=== PATIENT | male | born 1960 | race Caucasian/White ===

== ENCOUNTER 2017-07-25 12:40 | Observation (INO) | payer OTHER ==
[~2017-07-25] VITALS: Ht 167.6 cm; Wt 65.0 kg
[2017-07-25] MEDS ORDERED: GADODIAMIDE PF 287 MG/ML 5 ML VIAL (for RAD MRI) IV PUSH ONE (12:41)
[2017-07-25 12:49] VITALS: BP 167/84; PULSE 74; RESP 17; O2SAT 97
[2017-07-25] MEDS ORDERED: SODIUM CHLOR 0.9% 1000 ML INJ 1,000 ML IV ONE (13:02)
[2017-07-25 13:08] VITALS: O2SAT 96
--- NOTE | 2017-07-25 13:08 | PD ---
HPI Chief Complaint: Syncope/Near-Syncope Time Seen by Provider: 12:55 Travel History International Travel<30 days: No Contact w/Intl Traveler<30days: No Traveled to known affect area: No History of Present Illness HPI The patient is a 57-year-old male who presents to the emergency department via EMS for headache. The patient developed a headache at approximately 10 AM. Gradual onset, right-sided, radiates the right aspect of the neck. The patient then developed photophobia, nausea and, and vomiting. The patient states he fell on a glass table, injuring his left knee, secondary to the headache pain earlier today. He does note a superficial abrasion to the left knee, but states he did not strike his head on the ground at that time and there was no loss of consciousness. The patient denies any history of previous similar headaches or history of migraines. He does have a history of previous cervical fracture, but denies any recent trauma to the head or neck. He denies taking any anticoagulants or blood thinners. He denies any focal deficits of the upper or lower extremities. Symptoms are moderate. There are no current alleviating or exacerbating factors. [facility] Past Medical History Narrative Medical Depression, cervical fracture ?: Not Past Surgical History Surgical History: No Previous Surgery Social History Tobacco Use: Yes Allergies-Medications (Allergen,Severity, Reaction): Coded Allergies: No Known Allergies (Unverified , 07/25/17) Reported Meds & Prescriptions Reported Meds & Active Scripts Active Reported Baclofen 10 Mg Tab 10 Mg PO BID Physical Exam Narrative GENERAL: Awake, alert, nontoxic-appearing 57-year-old male who appears his stated age and is in no acute respiratory distress. SKIN: Focused skin assessment warm/dry. HEAD: Atraumatic. Normocephalic. EYES: Pupils equal and round. 3 mm bilateral and reactive. EOMs are intact. Patient is able to see fingers at a distance of 2 feet without difficulty. ENT: No nasal bleeding or discharge. Mucous membranes pink and moist. NECK: Trachea midline. No JVD. No meningeal signs. CARDIOVASCULAR: Regular rate and rhythm. No murmur appreciated. RESPIRATORY: No accessory muscle use. Clear to auscultation. Breath sounds equal bilaterally. GASTROINTESTINAL: Abdomen soft, non-tender, nondistended. No rebound tenderness. MUSCULOSKELETAL: No obvious deformities. No clubbing. No cyanosis. No edema. NEUROLOGICAL: Awake and alert. Slightly asymmetric smile on the left with mild droop. Patient is able to wrinkle the forehead symmetrically. No drift of the upper or lower extremities. Sensation is intact in the face, arms, and legs. No dysarthria. Oriented 4. Follows commands without difficulty. PSYCHIATRIC: Appropriate mood and affect; insight and judgment normal. Data Data Last Documented VS Vital Signs Date Time Temp Pulse Resp B/P (MAP) Pulse Ox O2 Delivery O2 Flow Rate FiO2 07/25/17 19:12 92 18 135/93 (107) 97 Room Air Orders Orders Ct Brain W/O Iv Contrast(Rout) (07/25/17 13:02) Ecg Monitoring (07/25/17 13:02) Iv Access Insert/Monitor (07/25/17 13:02) Oximetry (07/25/17 13:02) Sodium Chloride 0.9% Flush (Ns Flush) (07/25/17 13:15) Prochlorperazine Inj (Compazine Inj) (07/25/17 13:15) Diphenhydramine Inj (Benadryl Inj) (07/25/17 13:15) Sodium Chlor 0.9% 1000 Ml Inj (Ns 1000 M (07/25/17 13:02) Morphine Inj (Morphine Inj) (07/25/17 13:15) Ketorolac Inj (Toradol Inj) (07/25/17 13:45) Lorazepam Inj (Ativan Inj) (07/25/17 14:00) Complete Blood Count With Diff (07/25/17 15:36) Basic Metabolic Panel (Bmp) (07/25/17 15:36) Westergren Sedimentation Rate (07/25/17 15:36) Mri Brain W&W/O Contrast (07/25/17 ) Gadodiamide Pf Inj (Omniscan Pf Inj) (07/25/17 12:41) Morphine Inj (Morphine Inj) (07/25/17 19:30) Aspirin Chew (Aspirin Chew) (07/25/17 19:45) Admit Order (Ed Use Only) (07/25/17 19:38) Labs Laboratory Tests Test 07/25/17 16:10 White Blood Count 7.9 TH/MM3 Red Blood Count 5.89 MIL/MM3 Hemoglobin 17.7 GM/DL Hematocrit 53.4 % Mean Corpuscular Volume 90.8 FL Mean Corpuscular Hemoglobin 30.1 PG Mean Corpuscular Hemoglobin Concent 33.2 % Red Cell Distribution Width 15.3 % Platelet Count 260 TH/MM3 Mean Platelet Volume 9.5 FL Neutrophils (%) (Auto) 75.2 % Lymphocytes (%) (Auto) 16.5 % Monocytes (%) (Auto) 6.5 % Eosinophils (%) (Auto) 0.8 % Basophils (%) (Auto) 1.0 % Neutrophils # (Auto) 6.0 TH/MM3 Lymphocytes # (Auto) 1.3 TH/MM3 Monocytes # (Auto) 0.5 TH/MM3 Eosinophils # (Auto) 0.1 TH/MM3 Basophils # (Auto) 0.1 TH/MM3 CBC Comment DIFF FINAL Differential Comment Erythrocyte Sedimentation Rate 1 mm/hr Blood Urea Nitrogen 6 MG/DL Creatinine 0.88 MG/DL Random Glucose 80 MG/DL Calcium Level 9.3 MG/DL Sodium Level 136 MEQ/L Potassium Level 4.0 MEQ/L Chloride Level 98 MEQ/L Carbon Dioxide Level 29.7 MEQ/L Anion Gap 8 MEQ/L Estimat Glomerular Filtration Rate 90 ML/MIN Hemoglobin A1c 5.4 % MDM Medical Decision Making Medical Screen Exam Complete: Yes Emergency Medical Condition: Yes Medical Record Reviewed: Yes Interpretation(s) Last Impressions Head CT 07/25/17 1302 Signed Impressions: Service Date/Time: Tuesday, July 25, 2017 13:20 - CONCLUSION: Old lacunar infarct on the right, otherwise negative Preet Brown MD FACR Differential Diagnosis Differential diagnoses include subarachnoid hemorrhage, intracranial hemorrhage , complicated migraine, TIA, CVA, aneurysm, tension headache, glaucoma. Narrative Course IV was established and the patient was placed on cardiac telemetry monitoring and continuous pulse oximetry monitoring. Stat CT of the brain was obtained. The patient was administered morphine, Benadryl, Compazine, and IV fluids. CT of the brain was negative, therefore, Toradol intravenously was ordered. The patient had a reaction to Compazine where he became restless, was administered Ativan 1 mg intravenously. The patient was reevaluated at 3:35 PM, he was somewhat sedated from medications, but still complained of a headache. Therefore, MRI of the brain was obtained. Laboratory evaluation was sent to lab. The patient was signed out to the [facility] physician at 5 PM with MRI of the brain and possible observation pending. Diagnosis Primary Impression: Intractable headache Qualified Codes: R51 - Headache Scripts Aspirin (Px Aspirin) 325 Mg Tab 325 MG PO DAILY for Prevent Blood Clot, #30 TAB Prov: Blanca Gordillo PA-C 07/27/17 Condition: Stable Saroj Mendoza MD Jul 25, 2017 13:08
[2017-07-25] MEDS ORDERED: DULOXETINE HCL PO (13:10)
[2017-07-25] MEDS ORDERED: BACL10TA PO (13:10)
[2017-07-25] MEDS ORDERED: diphenhydrAMINE HCL 50 MG/ML VIAL IVP ONE (13:15)
[2017-07-25] MEDS ORDERED: MORPHINE SULFATE 4 MG/ML INJ IV PUSH ONE (13:15)
[2017-07-25] MEDS ORDERED: SODIUM CHLORIDE 0.9% FLUSH 10 ML FLUSH IVF PRN (13:15)
[2017-07-25] MEDS ORDERED: PROCHLORPERAZINE INJ 10 MG/2 ML VIAL IVP ONE (13:15)
--- NOTE | 2017-07-25 13:28 | RADRPT ---
EXAM DATE/TIME: 07/25/2017 13:20 CORRECTION Corrected on: July 25, 2017; [facility] COMPARISON: No previous studies available for comparison. INDICATIONS : Cephalgia with dizziness and loss of balance, difficulty speaking. RADIATION DOSE: 37.99 CTDIvol (mGy) MEDICAL HISTORY : Stroke in 2014 SURGICAL HISTORY : None. ENCOUNTER: Initial ACUITY: 1 day PAIN SCALE: 10/10 LOCATION: Right cranial TECHNIQUE: Multiple contiguous axial images were obtained of the head. Using automated exposure control and adj ustment of the mA and/or kV according to patient size, radiation dose was kept as low as reasonably a chievable to obtain optimal diagnostic quality images. DICOM format image data is available electro nically for review and comparison. FINDINGS: CEREBRUM: The ventricles are normal for age. No evidence of midline shift, mass lesion, hemorrhage or acute in farction. Old lacunar infarct basalganglia on the left.. No extra-axial fluid collections are seen. POSTERIOR FOSSA: The cerebellum and brainstem are intact. The 4th ventricle is midline. The cerebellopontine angle i s unremarkable. EXTRACRANIAL: The visualized portion of the orbits is intact. SKULL: The calvaria is intact. No evidence of skull fracture. CONCLUSION: Old lacunar infarct on the right, otherwise negative Preet Brown MD FACR on July 25, 2017 at 13:26 Board Certified Radiologist. This report was verified electronically. Preet Brown MD FACR on July 25, 2017 at 13:42 Board Certified Radiologist. This report was verified electronically.
[2017-07-25] MEDS ORDERED: KETOROLAC TROMETHAMINE 30 MG/ML (IVP) VIAL IV PUSH ONE (13:45)
[2017-07-25] MEDS ORDERED: LORazepam 2 MG/ML VIAL IV PUSH ONE (14:00)
[2017-07-25 16:40] LABS: BASOPHIL # 0.1 TH/MM3 (0-0.2); EOSINOPHIL # 0.1 TH/MM3 (0-0.4); EOSINOPHIL % 0.8 % (0.0-4.0); HEMATOCRIT 53.4 % (39.0-51.0); HEMOGLOBIN 17.7 GM/DL (13.0-17.0); LYMPH % 16.5 % (9.0-44.0); LYMPHOCYTE # 1.3 TH/MM3 (1.0-4.8); MEAN CELL VOLUME 90.8 FL (80.0-100.0); MEAN CORPUSCULAR HEMOGLOBIN 30.1 PG (27.0-34.0); MEAN CORPUSCULAR HGB CONC 33.2 % (32.0-36.0); MEAN PLATELET VOLUME 9.5 FL (7.0-11.0); MONO % 6.5 % (0.0-8.0); MONOCYTE # 0.5 TH/MM3 (0-0.9); NEUT % 75.2 % (16.0-70.0); PLATELET COUNT 260 TH/MM3 (150-450); RED BLOOD COUNT 5.89 MIL/MM3 (4.50-5.90); RED CELL DISTRIBUTION WIDTH 15.3 % (11.6-17.2); WHITE BLOOD COUNT 7.9 TH/MM3 (4.0-11.0)
[2017-07-25 16:59] LABS: BICARBONATE 29.7 MEQ/L (21.0-32.0); CALCIUM 9.3 MG/DL (8.5-10.1); CREATININE 0.88 MG/DL (0.60-1.30)
[2017-07-25 17:00] VITALS: BP 152/93; PULSE 81; RESP 17; O2SAT 100
[2017-07-25 19:12] VITALS: BP 135/93; PULSE 92; RESP 18; O2SAT 97
--- NOTE | 2017-07-25 19:14 | RADRPT ---
EXAM DATE/TIME: 07/25/2017 18:23 [facility] COMPARISON: No previous studies available for comparison. INDICATIONS : Headaches. CONTRAST: 13 cc Omniscan (gadodiamide) IV MEDICAL HISTORY : None. SURGICAL HISTORY : None. ENCOUNTER: Initial ACUITY: 1 day PAIN SCORE: 9/10 LOCATION: Bilateral cranial TECHNIQUE: Multiplanar, multisequence MRI of the brain was performed both prior to and following the administrat ion of paramagnetic contrast. FINDINGS: CEREBRUM: The ventricles are normal for age. There is increased signal seen throughout the cerebral and pontin e white matter. There are a few punctate small focal areas of increased signal seen on the diffusion weighted images including in the right parietal and right frontal regions. There appears to be an are a of focal encephalomalacia at the right basal ganglia and extending into the centrum semiovale. No e vidence of midline shift, mass lesion, hemorrhage. No extraaxial fluid collections are seen. The pi tuitary gland and suprasellar cistern are normal in configuration. POSTERIOR FOSSA: The cerebellum and brainstem are intact. The 4th ventricle is midline. The cerebellopontine angle is unremarkable. The cerebellar tonsils are normal in position. DIFFUSION IMAGING: No focal areas of restricted diffusion are seen. No evidence of acute infarction. EXTRACRANIAL: The visualized portions of the orbits and paranasal sinuses are unremarkable. POST-CONTRAST: No abnormal areas of parenchymal or dural enhancement. No evidence of blood-brain barrier breakdown. CONCLUSION: 1. Very prominent increased signal throughout the cerebral and pontine white matter likely from under lying demyelinating conditions. 2. Focal areas of encephalomalacia at the right basal ganglia and extending into the centrum semioval e white matter likely from prior infarct. 3. There a few punctate areas of abnormal signal seen in the right parietal right frontal lobes on th e diffusion weighted images represent either very small lacunar infarcts versus T2 shine through phen omenon. The T2 shine through the none can be from the increased signal seen throughout this cerebral white matter. An area of significant mass effect or hemorrhage is not present. Nii Ellsworth MD on July 25, 2017 at 19:06 Board Certified Radiologist. This report was verified electronically.
--- NOTE | 2017-07-25 19:28 | PD ---
Data Data Last Documented VS Vital Signs Date Time Temp Pulse Resp B/P (MAP) Pulse Ox O2 Delivery O2 Flow Rate FiO2 07/25/17 19:12 92 18 135/93 (107) 97 Room Air Orders Orders Ct Brain W/O Iv Contrast(Rout) (07/25/17 13:02) Ecg Monitoring (07/25/17 13:02) Iv Access Insert/Monitor (07/25/17 13:02) Oximetry (07/25/17 13:02) Sodium Chloride 0.9% Flush (Ns Flush) (07/25/17 13:15) Prochlorperazine Inj (Compazine Inj) (07/25/17 13:15) Diphenhydramine Inj (Benadryl Inj) (07/25/17 13:15) Sodium Chlor 0.9% 1000 Ml Inj (Ns 1000 M (07/25/17 13:02) Morphine Inj (Morphine Inj) (07/25/17 13:15) Ketorolac Inj (Toradol Inj) (07/25/17 13:45) Lorazepam Inj (Ativan Inj) (07/25/17 14:00) Complete Blood Count With Diff (07/25/17 15:36) Basic Metabolic Panel (Bmp) (07/25/17 15:36) Westergren Sedimentation Rate (07/25/17 15:36) Mri Brain W&W/O Contrast (07/25/17 ) Gadodiamide Pf Inj (Omniscan Pf Inj) (07/25/17 12:41) Morphine Inj (Morphine Inj) (07/25/17 19:30) Aspirin Chew (Aspirin Chew) (07/25/17 19:45) Labs Laboratory Tests Test 07/25/17 16:10 White Blood Count 7.9 TH/MM3 Red Blood Count 5.89 MIL/MM3 Hemoglobin 17.7 GM/DL Hematocrit 53.4 % Mean Corpuscular Volume 90.8 FL Mean Corpuscular Hemoglobin 30.1 PG Mean Corpuscular Hemoglobin Concent 33.2 % Red Cell Distribution Width 15.3 % Platelet Count 260 TH/MM3 Mean Platelet Volume 9.5 FL Neutrophils (%) (Auto) 75.2 % Lymphocytes (%) (Auto) 16.5 % Monocytes (%) (Auto) 6.5 % Eosinophils (%) (Auto) 0.8 % Basophils (%) (Auto) 1.0 % Neutrophils # (Auto) 6.0 TH/MM3 Lymphocytes # (Auto) 1.3 TH/MM3 Monocytes # (Auto) 0.5 TH/MM3 Eosinophils # (Auto) 0.1 TH/MM3 Basophils # (Auto) 0.1 TH/MM3 CBC Comment DIFF FINAL Differential Comment Erythrocyte Sedimentation Rate 1 mm/hr Blood Urea Nitrogen 6 MG/DL Creatinine 0.88 MG/DL Random Glucose 80 MG/DL Calcium Level 9.3 MG/DL Sodium Level 136 MEQ/L Potassium Level 4.0 MEQ/L Chloride Level 98 MEQ/L Carbon Dioxide Level 29.7 MEQ/L Anion Gap 8 MEQ/L Estimat Glomerular Filtration Rate 90 ML/MIN MDM Supervised Visit with MOON: No Narrative Course The patient was initially evaluated by the previous provider and signed out to me at the beginning of my shift pending MRI brain and disposition. See his note for further details. Briefly this is a 57-year-old male who presents for evaluation of right frontal/ parietal headache. Symptoms started at around 10 AM with gradual onset of headache and photophobia. The patient also experienced some nausea and vomiting and fell and sustained a left knee abrasion. Patient presented to the emergency department at around 1:00 PM and promptly had a CT head which was read as negative. Patient has a slight left facial droop around his mouth which is unsure if it is old or new. He is otherwise neurologically intact. There is no nuchal rigidity. Given the fact that the onset of headache was gradual and the fact that he had a negative CT head within 6 hours, the previous provider did not feel as though this was a subarachnoid hemorrhage. Patient was provided Compazine, Benadryl, and Toradol without relief of symptoms. He was given a dose of morphine by the previous provider, and because of ongoing headache, MRI of the brain was ordered to look for possible mass. On my exam the patient is resting comfortably. He still complains of a right-sided headache that he rates as 8 out of 10, pressure-like. There are no focal neurologic findings other than slight left facial droop at the corner of his mouth. Normal sensation throughout his face. Normal muscle strength in upper and lower extremities with normal sensation. MRI brain: CONCLUSION: 1. Very prominent increased signal throughout the cerebral and pontine white matter likely from underlying demyelinating conditions. 2. Focal areas of encephalomalacia at the right basal ganglia and extending into the centrum semiovale white matter likely from prior infarct. 3. There a few punctate areas of abnormal signal seen in the right parietal right frontal lobes on the diffusion weighted images represent either very small lacunar infarcts versus T2 shine through phenomenon. The T2 shine through the none can be from the increased signal seen throughout this cerebral white matter. An area of significant mass effect or hemorrhage is not present. Given ongoing headache with MRI findings as above, the patient will be given a dose of aspirin and will be admitted for further treatment and evaluation. Case discussed with hospitalist Dr. Keane who will admit the patient to her service for overnight observation for intractable headache, lacunar infarcts. Patient was made aware of all findings and is amenable to plan for overnight observation. Diagnosis Primary Impression: Intractable headache Qualified Codes: R51 - Headache Additional Impression: Multiple lacunar infarcts Admitting Information Admitting Physician Requests: Observation Condition: Stable Jose Hernandez MD Jul 25, 2017 19:28
[2017-07-25] MEDS ORDERED: MORPHINE SULFATE 2 MG/ML SYRINGE IV PUSH ONE (19:30)
[2017-07-25] MEDS ORDERED: ASPIRIN 81 MG CHEW TAB PO ONE (19:45)
[2017-07-25] MEDS ORDERED: GLUCAGON 1 MG/ML VIAL OTHER PRN (20:30)
[2017-07-25] MEDS ORDERED: DEXTROSE 50% IN WATER 50 ML VIAL(D50) IV PUSH PRN (20:30)
[2017-07-25] MEDS ORDERED: SODIUM CHLORIDE 0.9% FLUSH 10 ML FLUSH IV FLUSH PRN (20:30)
[2017-07-25] MEDS ORDERED: ENALAPRILAT 1.25 MG/ML VIAL IV PUSH PRN (20:30)
--- NOTE | 2017-07-25 21:33 | RADRPT ---
EXAM DATE/TIME: 07/25/2017 20:46 [facility] COMPARISON: No previous studies available for comparison. INDICATIONS : CVA. MEDICAL HISTORY : Depression. Cervical fracture. SURGICAL HISTORY : None. ENCOUNTER: Initial ACUITY: 1 day PAIN SCORE: 0/10 LOCATION: Bilateral neck PEAK SYSTOLIC VELOCITIES (cm/sec): ICA/CCA RATIO: Right: 1.67 Left: 1.35 ICA: Right: 134 Left: 88 CCA: Right: 80 Left: 65 ECA: Right: 110 Left: 94 VERTEBRAL: Right: 27 antegrade Left: 50 antegrade Elevated flow velocities and ICA/CCA ratios have been found to correlate with increased degrees of vessel stenosis, calculated as percentage of diameter relative to a normal segment of distal ICA/CCA FINDINGS: RIGHT CAROTID: There is mild plaque at the carotid bulb regions. There is minimal elevation of the right internal ca rotid artery peak systolic velocity. The waveforms are within normal limits. LEFT CAROTID: There is mild plaque at the carotid bulb regions. No significant stenosis is visualized. The wavefor ms are within normal limits. VERTEBRAL ARTERIES: Antegrade flow is seen in both vertebral arteries. MISCELLANEOUS: None. CONCLUSION: Mild plaque at the carotid bulb regions bilaterally. There is minimal elevation of the right internal carotid artery peak systolic velocity. A mild stenosis cannot be excluded. The carotids could be fur ther evaluated with a CTA. Nii Ellsworth MD on July 25, 2017 at 21:28 Board Certified Radiologist. This report was verified electronically.
[2017-07-25] MEDS: BACLOFEN 10 MG TAB PO SCH (22:11)
[2017-07-25] MEDS: SODIUM CHLORIDE 0.9% FLUSH 10 ML FLUSH IV FLUSH SCH (22:11)
[2017-07-25] MEDS: INSULIN ASPART SUPPLEMENTAL SCALE SQ SCH (22:11)
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
[2017-07-25 22:35] LABS: HEMOGLOBIN A1C 5.4 % (4.3-6.0)
[2017-07-26] VITALS (9 sets, daily range): BP systolic 123–154; BP diastolic 76–85; PULSE 59–78; RESP 18; TEMP 97.7–98.7; O2SAT 96–98
[2017-07-26] MEDS: INSULIN ASPART SUPPLEMENTAL SCALE SQ SCH ×4 (08:00→21:00)
[2017-07-26 08:30] LABS: CHOLESTEROL/ HDL RATIO 3.44 RATIO; HDL CHOLESTEROL 44.4 MG/DL (40.0-60.0)
[2017-07-26] MEDS: BACLOFEN 10 MG TAB PO SCH ×2 (08:47→21:00)
[2017-07-26] MEDS: DULoxetine HCl DR 30 MG CAP PO SCH (08:48)
[2017-07-26] MEDS: ASPIRIN 325 MG TAB PO SCH (08:48)
[2017-07-26] MEDS: SODIUM CHLORIDE 0.9% FLUSH 10 ML FLUSH IV FLUSH SCH ×2 (08:50→21:36)
[2017-07-26] MEDS ORDERED: DULOXETINE HCL 30 MG PO SCH (09:00)
--- NOTE | 2017-07-26 10:00 | HHI.PR ---
Subjective Remarks in no acute distress. headache has resolved. no new complaints. Objective Vitals Vital Signs Date Time Temp Pulse Resp B/P (MAP) Pulse Ox O2 Delivery O2 Flow Rate FiO2 07/26/17 08:16 98.6 70 18 136/85 (102) 98 07/26/17 04:51 97.8 78 18 141/80 (100) 96 07/26/17 04:11 59 07/26/17 00:43 97.7 65 18 150/80 (103) 97 07/26/17 00:23 66 07/25/17 21:19 07/25/17 19:12 92 18 135/93 (107) 97 Room Air 07/25/17 17:00 81 17 152/93 (112) 100 Room Air 07/25/17 13:08 96 Room Air 07/25/17 12:49 74 17 167/84 (111) 97 Result Diagram: 07/25/17 1610 07/25/17 1610 Imaging Last Impressions Head CT 07/25/17 1302 Signed Impressions: Service Date/Time: Tuesday, July 25, 2017 13:20 - CONCLUSION: Old lacunar infarct on the right, otherwise negative Preet Brown MD FACR Carotid Artery Ultrasound 07/25/17 0000 Signed Impressions: Service Date/Time: Tuesday, July 25, 2017 20:46 - CONCLUSION: Mild plaque at the carotid bulb regions bilaterally. There is minimal elevation of the right internal carotid artery peak systolic velocity. A mild stenosis cannot be excluded. The carotids could be further evaluated with a CTA. Nii Ellsworth MD Brain MRI 07/25/17 0000 Signed Impressions: Service Date/Time: Tuesday, July 25, 2017 18:23 - CONCLUSION: 1. Very prominent increased signal throughout the cerebral and pontine white matter likely from underlying demyelinating conditions. 2. Focal areas of encephalomalacia at the right basal ganglia and extending into the centrum semiovale white matter likely from prior infarct. 3. There a few punctate areas of abnormal signal seen in the right parietal right frontal lobes on the diffusion weighted images represent either very small lacunar infarcts versus T2 shine through phenomenon. The T2 shine through the none can be from the increased signal seen throughout this cerebral white matter. An area of significant mass effect or hemorrhage is not present. Nii Ellsworth MD Objective Remarks GENERAL: This is a well-nourished, well-developed patient, in no apparent distress. CARDIOVASCULAR: Regular rate and regular rhythm without murmurs, gallops, or rubs. RESPIRATORY: Clear to auscultation. Breath sounds equal bilaterally. No wheezes , rales, or rhonchi. GASTROINTESTINAL: Abdomen soft, non-tender, nondistended. Normal, active bowel sounds MUSCULOSKELETAL: Extremities without clubbing, cyanosis, or edema. NEURO: Alert & Oriented x4 to person, place, time, situation. Moves all ext x4 Medications and IVs Inpatient Medications Aspirin (Aspirin Chew) 324 mg ONCE ONCE PO Last administered on 07/25/17at 19: 40; Start 07/25/17 at 19:45; Stop 07/25/17 at 19:46; Status DC Aspirin (Aspirin) 325 mg DAILY PO Last administered on 07/26/17at 08:48; Start 07/26/17 at 09:00 Baclofen (Lioresal) 10 mg BID PO Last administered on 07/26/17at 08:47; Start at 21:00 Dextrose (D50w (Vial) Inj) 50 ml UNSCH PRN IV PUSH HYPOGLYCEMIA-SEE COMMENTS; Start 07/25/17 at 20:30 Diphenhydramine HCl (Benadryl Inj) 25 mg ONCE ONCE IVP Last administered on at 13:38; Start 07/25/17 at 13:15; Stop 07/25/17 at 13:16; Status DC Duloxetine HCl (Cymbalta Dr) 30 mg DAILY PO Last administered on 07/26/17at 08: 48; Start 07/26/17 at 09:00 Enalaprilat (Vasotec Inj) 1.25 mg Q4H PRN IV PUSH For SBP >/= 180 or DBP >/= 100; Start 07/25/17 at 20:30 Glucagon (Glucagon Inj) 1 mg UNSCH PRN OTHER HYPOGLYCEMIA-SEE COMMENTS; Start 07/25/17 at 20:30 Insulin Aspart (NovoLOG SUPPLEMENTAL SCALE) 1 ACHS SQ ; Start 07/25/17 at 21:00 Ketorolac Tromethamine (Toradol Inj) 15 mg ONCE ONCE IV PUSH Last administered on 07/25/17at 13:43; Start 07/25/17 at 13:45; Stop 07/25/17 at 13:47 ; Status DC Lorazepam (Ativan Inj) 1 mg ONCE ONCE IV PUSH Last administered on 07/25/17at 13:54; Start 07/25/17 at 14:00; Stop 07/25/17 at 14:01; Status DC Morphine Sulfate (Morphine Inj) 4 mg ONCE ONCE IV PUSH Last administered on at 19:32; Start 07/25/17 at 19:30; Stop 07/25/17 at 19:31; Status DC Prochlorperazine Edisylate (Compazine Inj) 10 mg ONCE ONCE IVP Last administered on 07/25/17at 13:38; Start 07/25/17 at 13:15; Stop 07/25/17 at 13:16 ; Status DC Sodium Chloride (NS Flush) 2 ml UNSCH PRN IV FLUSH FLUSH AFTER USING IV ACCESS ; Start 07/25/17 at 20:30 A/P Problem List: (1) Intractable headache ICD Code: R51 - Headache Status: Acute Assessment and Plan A/P Intractable headache- now has resolved. History of right CVA -Head CT shows old lacunar infarct on the right, otherwise negative -Brain MRI shows very prominent increased signal throughout the cerebral and pontine white matter likely from an underlying demyelinating condition. Focal areas of encephalomalacia on right likely from prior infarct. A few punctate areas of abnormal signal seen in right parietal/right frontal lobes on diffusion weighted images representing either very small lacunar infarcts or T2 shine through phenomenon. No area of significant mass-effect or hemorrhage was present. -Check echocardiogram to evaluate cardiac structure and function -Consulted neurology -appreciate assistance -Continuous cardiac telemetry to monitor for arrhythmia -Daily aspirin 325 mg p.o. Chronic neck pain status post cervical fracture -Continue home baclofen Anxiety/depression -Continue home Cymbalta DVT prophylaxis -SCDs for now pending neurology assessment Discharge Planning awaiting neurology evaluation. Problem Qualifiers (1) Intractable headache: Qualified Codes: R51 - Headache Venkata Morales MD Jul 26, 2017 10:00
[2017-07-26] MEDS ORDERED: DULO1CAP2 PO (10:58)
--- NOTE | 2017-07-26 14:58 | MB ---
cc: Mona Porter MD DATE: 07/26/2017 DATE OF : 1960 AGE: [age] years old. REASON FOR CONSULTATION: Possible stroke, headache. HISTORY OF PRESENT ILLNESS: This is a 57-year-old male with history of stroke in 2014. Etiology: He states he was doing a lot of cocaine. History of C-spine fracture, depression, anxiety, hyperlipidemia, hepatitis C. He comes in because of frontal headache, photophobia, some nausea and vomiting. CT was done, showed an old lacune. MRI shows some white matter disease, lacunes and possible T2 shine-through versus infarct over the right parietal and frontal region. The patient states his headache is now gone. He offers no complaints. He wants to go home. He has no weakness, no ataxia. No speech issues. PAST MEDICAL HISTORY: As stated. HOME MEDICINES: 1. Duloxetine 30 mg daily. 2. Baclofen 10 mg twice a day. ALLERGIES: NONE REPORTED. FAMILY HISTORY: Mother had strokes. Denies any other family history. SOCIAL HISTORY: He is a smoker since age 17, still actively smoking. Occasional weekend alcohol use. Denies any drugs since the cocaine a few years back. PHYSICAL EXAMINATION: VITAL SIGNS: Temperature is 98.4, pulse 70, respiratory rate 18, blood pressure 123/76. NECK: Supple. No carotid bruits are auscultated. HEART: Regular. NEUROLOGICAL EXAMINATION: He is awake, alert. He is oriented and fluent. Pupils reactive. Visual julian full. Face symmetrical. Tongue midline. Motor: No drift, no leg lag. [id number]: No past-pointing. DTRs are brisk. Toes withdraws. Gait: He has been ambulating around the unit here without any ataxia. LABORATORY DATA: Reviewed. His cholesterol is 153, LDL 86, HDL 44.4, triglycerides 113. Hemoglobin is 17.1. Sedimentation rate is 1. IMAGING STUDIES: Carotid Ultrasound: Mild plaque in the bulbs bilaterally. Minimal elevation of right internal carotid peak. Mild stenosis cannot be excluded. MRI brain shows increased signal throughout, consistent with white matter disease. It is seen over the right parietal/frontal lobe. It is either some small lacune versus T2 shine-through. IMPRESSION: 1. Headache in a patient with prior stroke history. 2. Hyperlipidemia. 3. Hypertension possibly. 4. History of polysubstance abuse. 5. Possible new lacune. RECOMMENDATIONS: 1. Recommend getting an echo. 2. Placing him on aspirin therapy 325 mg daily. Discussed risk factors with him. No drugs, no alcohol, no smoking. If he is feeling better and cleared by PT from a neurologic perspective, he can be discharged. Have him followup with his primary care at the [facility] and outpatient Neurology followup as well. MD WALDEMAR Garrison/LES , 02:34 PM , 02:57 PM
--- NOTE | 2017-07-26 19:02 | ECHRPT ---
Indication: Transient cerebral ischemic attack, unspecified CONCLUSIONS Normal left ventricular size and wall thickness. The left ventricular systolic function is normal with an estimated ejection fraction in the range of 60-65%. BP: 136 / 85 HR: 70 Rhythm: MEASUREMENTS (Male / Female) Normal Values Technical Quality:Good 2D ECHO LV Diastolic Diameter PLAX 4.3 cm 4.2 - 5.9 / 3.9 - 5.3 cm LV Systolic Diameter PLAX 3.1 cm IVS Diastolic Thickness 1.2 cm 0.6 - 1.0 / 0.6 - 0.9 cm LVPW Diastolic Thickness 1.1 cm 0.6 - 1.0 / 0.6 - 0.9 cm LV Relative Wall Thickness 0.5 RV Internal Dim ED PLAX 2.2 cm M-MODE Aortic Root Diameter MM 3.3 cm LA Systolic Diameter MM 3.6 cm LA Ao Ratio MM 1.1 AV Cusp Separation MM 2.0 cm DOPPLER Mitral E Point Velocity 73.3 cm/s Mitral A Point Velocity 69.2 cm/s Mitral E to A Ratio 1.1 LV E' Lateral Velocity 6.1 cm/s Mitral E to LV E' Lateral Ratio 11.9 FINDINGS LEFT VENTRICLE Normal left ventricular size and wall thickness. The left ventricular systolic function is normal wi th an estimated ejection fraction in the range of 60-65%. Left ventricular diastolic function parameters a re normal. RIGHT VENTRICLE Normal right ventricular size and systolic function. LEFT ATRIUM The left atrial size is normal. RIGHT ATRIUM The right atrial size is normal. ATRIAL SEPTUM Normal atrial septal thickness without atrial level shunting by limited color doppler interrogation. AORTA The aortic root and proximal ascending aorta are normal in size on limited imaging. MITRAL VALVE Structurally normal mitral valve. No mitral valve stenosis or regurgitation. AORTIC VALVE Trileaflet aortic valve. No aortic valve stenosis or regurgitation. TRICUSPID VALVE Structurally normal tricuspid valve. No tricuspid valve stenosis or regurgitation. PULMONARY VALVE Trivial pulmonary valve regurgitation. VESSELS The inferior vena cava is normal in size. PERICARDIUM No pericardial effusion. Tarah Anthony MD, FACC (Electronically Signed) Final Date:26 July 2017 19:01
[2017-07-27] MEDS: ACETAMINOPHEN 325 MG TAB PO PRN ×2 (00:10→12:28)
[2017-07-27 02:28] VITALS: BP 127/81; PULSE 76; RESP 16; TEMP 97.5; O2SAT 96
[2017-07-27 05:40] VITALS: PULSE 61
[2017-07-27 08:13] VITALS: BP 137/84; PULSE 68; RESP 18; TEMP 97.8; O2SAT 97
[2017-07-27] MEDS: INSULIN ASPART SUPPLEMENTAL SCALE SQ SCH ×2 (08:23→12:30)
[2017-07-27] MEDS: DULoxetine HCl DR 30 MG CAP PO SCH (08:52)
[2017-07-27] MEDS: ASPIRIN 325 MG TAB PO SCH (08:52)
[2017-07-27] MEDS: BACLOFEN 10 MG TAB PO SCH (08:53)
[2017-07-27] MEDS: SODIUM CHLORIDE 0.9% FLUSH 10 ML FLUSH IV FLUSH SCH (08:53)
[2017-07-27] MEDS ORDERED: ASA325 PO (12:48)
--- NOTE | 2017-07-27 12:52 | HHI.PR ---
Subjective Remarks in no acute distress. resting comfortably. has minimal headache. otherwise no other complaints and wants to go home. Objective Vitals Vital Signs Date Time Temp Pulse Resp B/P (MAP) Pulse Ox O2 Delivery O2 Flow Rate FiO2 07/27/17 08:13 97.8 68 18 137/84 (101) 97 07/27/17 05:40 61 07/27/17 02:28 97.5 76 16 127/81 (96) 96 07/26/17 20:56 98.1 70 18 154/84 (107) 97 07/26/17 16:16 98.7 60 18 146/83 (104) 97 Result Diagram: 07/25/17 1610 07/25/17 1610 Imaging Last Impressions Head CT 07/25/17 1302 Signed Impressions: Service Date/Time: Tuesday, July 25, 2017 13:20 - CONCLUSION: Old lacunar infarct on the right, otherwise negative Preet Brown MD FACR Carotid Artery Ultrasound 07/25/17 0000 Signed Impressions: Service Date/Time: Tuesday, July 25, 2017 20:46 - CONCLUSION: Mild plaque at the carotid bulb regions bilaterally. There is minimal elevation of the right internal carotid artery peak systolic velocity. A mild stenosis cannot be excluded. The carotids could be further evaluated with a CTA. Nii Ellsworth MD Brain MRI 07/25/17 0000 Signed Impressions: Service Date/Time: Tuesday, July 25, 2017 18:23 - CONCLUSION: 1. Very prominent increased signal throughout the cerebral and pontine white matter likely from underlying demyelinating conditions. 2. Focal areas of encephalomalacia at the right basal ganglia and extending into the centrum semiovale white matter likely from prior infarct. 3. There a few punctate areas of abnormal signal seen in the right parietal right frontal lobes on the diffusion weighted images represent either very small lacunar infarcts versus T2 shine through phenomenon. The T2 shine through the none can be from the increased signal seen throughout this cerebral white matter. An area of significant mass effect or hemorrhage is not present. Nii Ellsworth MD Objective Remarks GENERAL: This is a well-nourished, well-developed patient, in no apparent distress. CARDIOVASCULAR: Regular rate and regular rhythm without murmurs, gallops, or rubs. RESPIRATORY: Clear to auscultation. Breath sounds equal bilaterally. No wheezes , rales, or rhonchi. GASTROINTESTINAL: Abdomen soft, non-tender, nondistended. Normal, active bowel sounds MUSCULOSKELETAL: Extremities without clubbing, cyanosis, or edema. NEURO: Alert & Oriented x4 to person, place, time, situation. Moves all ext x4 Medications and IVs Inpatient Medications Acetaminophen (Tylenol) 650 mg Q4H PRN PO PAIN / HEADACHE/ TEMP > 100.4 Last administered on 07/27/17at 12:28; Start 07/26/17 at 23:45 Aspirin (Aspirin Chew) 324 mg ONCE ONCE PO Last administered on 07/25/17at 19: 40; Start 07/25/17 at 19:45; Stop 07/25/17 at 19:46; Status DC Aspirin (Aspirin) 325 mg DAILY PO Last administered on 07/27/17at 08:52; Start 07/26/17 at 09:00 Baclofen (Lioresal) 10 mg BID PO Last administered on 07/27/17at 08:53; Start at 21:00 Dextrose (D50w (Vial) Inj) 50 ml UNSCH PRN IV PUSH HYPOGLYCEMIA-SEE COMMENTS; Start 07/25/17 at 20:30 Diphenhydramine HCl (Benadryl Inj) 25 mg ONCE ONCE IVP Last administered on at 13:38; Start 07/25/17 at 13:15; Stop 07/25/17 at 13:16; Status DC Duloxetine HCl (Cymbalta Dr) 30 mg DAILY PO Last administered on 07/27/17at 08: 52; Start 07/26/17 at 09:00 Enalaprilat (Vasotec Inj) 1.25 mg Q4H PRN IV PUSH For SBP >/= 180 or DBP >/= 100; Start 07/25/17 at 20:30 Glucagon (Glucagon Inj) 1 mg UNSCH PRN OTHER HYPOGLYCEMIA-SEE COMMENTS; Start 07/25/17 at 20:30 Insulin Aspart (NovoLOG SUPPLEMENTAL SCALE) 1 ACHS SQ ; Start 07/25/17 at 21:00 Ketorolac Tromethamine (Toradol Inj) 15 mg ONCE ONCE IV PUSH Last administered on 07/25/17at 13:43; Start 07/25/17 at 13:45; Stop 07/25/17 at 13:47 ; Status DC Lorazepam (Ativan Inj) 1 mg ONCE ONCE IV PUSH Last administered on 07/25/17at 13:54; Start 07/25/17 at 14:00; Stop 07/25/17 at 14:01; Status DC Morphine Sulfate (Morphine Inj) 4 mg ONCE ONCE IV PUSH Last administered on at 19:32; Start 07/25/17 at 19:30; Stop 07/25/17 at 19:31; Status DC Prochlorperazine Edisylate (Compazine Inj) 10 mg ONCE ONCE IVP Last administered on 07/25/17at 13:38; Start 07/25/17 at 13:15; Stop 07/25/17 at 13:16 ; Status DC Sodium Chloride (NS Flush) 2 ml UNSCH PRN IV FLUSH FLUSH AFTER USING IV ACCESS ; Start 07/25/17 at 20:30 A/P Problem List: (1) Intractable headache ICD Code: R51 - Headache Status: Acute Assessment and Plan A/P Intractable headache- now has resolved. History of right CVA -Head CT shows old lacunar infarct on the right, otherwise negative -Brain MRI shows very prominent increased signal throughout the cerebral and pontine white matter likely from an underlying demyelinating condition. Focal areas of encephalomalacia on right likely from prior infarct. A few punctate areas of abnormal signal seen in right parietal/right frontal lobes on diffusion weighted images representing either very small lacunar infarcts or T2 shine through phenomenon. No area of significant mass-effect or hemorrhage was present. -echo with EF 60%. -Consulted neurology -appreciate assistance; cleared for discharge with outpatient f/u. -Daily aspirin 325 mg p.o. Chronic neck pain status post cervical fracture -Continue home baclofen Anxiety/depression -Continue home Cymbalta DVT prophylaxis -SCDs for now pending neurology assessment Discharge Planning dc home with f/u with pcp and neurology. see med list. d/w the patient. Problem Qualifiers (1) Intractable headache: Qualified Codes: R51 - Headache Venkata Morales MD Jul 27, 2017 12:52
--- NOTE | 2017-07-27 12:52 | HHI.DCPOC ---
Discharge Care Plan Diagnosis: (1) Multiple lacunar infarcts (2) Intractable headache Goals to Promote Your Health * To prevent worsening of your condition and complications * To maintain your health at the optimal level Directions to Meet Your Goals Take your medications as prescribed Follow your dietary instruction Follow activity as directed Keep your appointments as scheduled Take your immunizations and boosters as scheduled If your symptoms worsen call your PCP, if no PCP go to Urgent Care Center or Emergency Room Smoking is Dangerous to Your Health. Avoid second hand smoke Call the 24-hour hour crisis hotline for domestic abuse at Blanca Gordillo PA-C Jul 27, 2017 12:51 pm
== END 2017-07-27 15:02 | disposition home or self-care (01) ==
LOC: NEPD 12:40 → NEDA 19:39 → NEPGCP 21:31
PROVIDERS: ADMIT Internal Medicine; ATTEND Internal Medicine
DX: R51 Headache (principal); R55 Syncope and collapse; H53.149 Visual discomfort, unspecified; R11.2 Nausea with vomiting, unspecified; S80.212A Abrasion, left knee, initial encounter; G93.89 Other specified disorders of brain; E78.5 Hyperlipidemia, unspecified; M54.2 Cervicalgia; G89.29 Other chronic pain; R29.810 Facial weakness; B19.20 Unspecified viral hepatitis C without hepatic coma; F32.9 Major depressive disorder, single episode, unspecified; F41.9 Anxiety disorder, unspecified; F17.210 Nicotine dependence, cigarettes, uncomplicated; Z86.73 Personal history of transient ischemic attack (TIA), and cerebral infarction without residual deficits; W19.XXXA Unspecified fall, initial encounter
CPT/HCPCS: 70450; 70553; 80048; 80061; 82948; 83036; 85025; 85652; 93306; 93880; 96361; 96374; 96375; 96376; 97161; 97165; 99285; A9579; G0378; G8987; G8988; G8989; J0780; J1200; J1885; J2060; J2270; J7030